=== PATIENT | male | born 1990 | race Caucasian/White ===

== ENCOUNTER 2021-06-02 23:32 | Emergency (ER) | payer OTHER ==
[~2021-06-02] VITALS: Ht 175.3 cm; Wt 72.6 kg
--- NOTE | ~2021-06-02 | EMS ---
[facility] [address] [place] [address] EMS Patient Care Report Name: ADDIS AVITIA Room #: REG LEONARDO Llanes#: [id number] Admission: 06/02/21 Attend Phys: Discharge: Date of : [birth year] Report #: [id number] THIS REPORT FOR: //name// Report Transmitted: 06/03/2021 00:43 EMS Care Summary [facility] MED-ACT Incident [id number] @ 06/02/2021 23:02 Incident Location [facility] [place] [address] Patient ADDIS AVITIA Male, 30 Years 1990 [place] [address] Patient History Cardiac Condition - Other, Patient Allergies No known allergies, Patient Medications None Reported, Chief Complaint Tachycardia Disposition Transported No Lights/[place] Dis[place] Reason Breathing Problem Transported To [facility] Narrative At 23:02, [id number] was dispatched by 911 to the [facility] at [address] for a C1 difficulty breathing. E-23 was also dispatched. PT was a 30 yr old male who reported taking a CBD gummy earlier tonight. He stated that shortly after ingesting it, he began twitching uncontrollably. He [facility] [address] [place] [address] EMS Patient Care Report Name: ADDIS AVITIA Room #: REG Mario Alberto#: [id number] Admission: 06/02/21 Attend Phys: Discharge: Date of : [birth year] Report #: [id number] said that it felt like his throat was getting tighter and his heart was pounding. PT was jumping around and continuously moving, and was unable to sit still. PT would calm himself for a short period, then get himself worked up again and start screaming. In one instance he screamed to the point of making himself vomit. Sinus tach was noticed on the monitor, with no ectopy noted on the 12-lead. VS, ECG, and 12-lead as listed. Radio report to [place]. Transfer of care to Ed room 4. Initial Vitals @23:18P: 146,SpO2: 96,MD Suspected: false @23:13P: 155,SpO2: 96,MD Suspected: false @23:26P: 166,SpO2: 97,MD Suspected: false @23:25P: 152,R: 30,BP: 146/88,Pain: 0/10,GCS: 15,SpO2: 98,Revised Trauma: 11, @23:14P: 152,R: 30,BP: 155/96,GCS: 15,Temp: 98.2F,Glucose: 144,SpO2: 95,Revised Trauma: 11, Impression Anxiety reaction/Emotional upset Procedures @23:26Saline Lock 10cc (20 ga) Site: Antecubital-LeftResponse: UnchangedSucceeded@23:1812-Lead ECG Timeline 23:01,Call Received 23:01,Psap Call 23:02,Dispatched 23:04,En Route 23:09,On Scene 23:10,At Patient 23:13,BP: / M,PULSE: 155,RR: R,SPO2: 96 Ox,ETCO2: ,BG: ,PAIN: ,GCS: , 23:14,BP: 155/96 M,PULSE: 152,RR: 30 R,SPO2: 95 Ox,ETCO2: ,B,PAIN: ,GCS: 15, 23:18,12-Lead ECG, 23:18,BP: / M,PULSE: 146,RR: R,SPO2: 96 Ox,ETCO2: ,BG: ,PAIN: ,GCS: , 23:21,Depart Scene 23:25,BP: 146/88 M,PULSE: 152,RR: 30 R,SPO2: 98 Ox,ETCO2: ,BG: ,PAIN: 0,GCS: 15, 23:26,Saline Lock 10cc 20 ga Site: Antecubital-Left,Response: UnchangedSucceeded, 23:26,BP: / M,PULSE: 166,RR: R,SPO2: 97 Ox,ETCO2: ,BG: ,PAIN: ,GCS: , 23:29,At Destination 23:47,Call Closed [facility] [address] [place] [address] EMS Patient Care Report Name: ADDIS AVITIA Room #: REG Mario Alberto#: [id number] Admission: 06/02/21 Attend Phys: Discharge: Date of : [birth year] Report #: [id number] Disclaimer [email or web address] Copyright 2020 [employer] This EMS Care Summary contains data elements from the applicable legal record (which may be displayed differently). It is designed to provide pertinent information for the following purposes: continuity of care, clinical quality, and state data reporting. The complete legal record is available to ED staff and administrators of the receiving hospital in [email or web address] Patient Tracker. All data is provided "as is."
[2021-06-02 23:57] LABS: ABSOLUTE NEUTROPHILS 3.5 thou/uL (1.4-8.2); EOSINOPHILS 3.9 % (0.0-3.0); HEMATOCRIT 44.1 % (42.0-52.0); HEMOGLOBIN 14.7 gm/dL (14.0-18.0); LYMPHOCYTES 37.7 % (24.0-44.0); MCH 29.9 pg (26.0-34.0); MCHC 33.4 g/dL (28.0-37.0); MCV 89.7 fL (80.0-100.0); PLATELET COUNT 144 thou/uL (150-400); POLYS 49.4 % (36.0-66.0); RBC 4.92 mil/uL (4.50-6.00); RDW 13.8 % (10.5-14.5); WBC 7.1 thou/uL (4.0-11.0)
[2021-06-03 00:03] LABS: ANION GAP 14 mmol/L (7-16); BUN 9 mg/dL (7-18); CALCIUM 8.5 mg/dL (8.5-10.1); CHLORIDE 104 mmol/L (98-107); CO2 22 mmol/L (21-32); CREATININE 1.1 mg/dL (0.7-1.3); GLUCOSE 102 mg/dL (74-106); POTASSIUM 3.8 mmol/L (3.5-5.1); SODIUM 140 mmol/L (136-145)
[2021-06-03 00:16] LABS: ALBUMIN 4.1 g/dL (3.4-5.0); DIRECT BILIRUBIN < 0.1 mg/dL (<0.1-0.2); LIPASE 104 U/L (73-393); SALICYLATE < 2.8 mg/dL (2.8-20.0); SGOT 20 U/L (15-37); SGPT 32 U/L (16-63); TOTAL BILIRUBIN 0.2 mg/dL (0.2-1.0); TOTAL PROTEIN 7.2 g/dL (6.4-8.2)
[2021-06-03 03:45] VITALS: BP 109/70
[2021-06-03 04:00] LABS: AMP/METHAMP Negative (Negative); BARBITURATES Negative (Negative); BENZODIAZEPINES Negative (Negative); COCAINE Negative (Negative); METHADONE Negative (Negative); OPIATES Negative (Negative); PCP Negative (Negative)
== END 2021-06-03 03:45 | disposition home or self-care (01) ==
LOC: ER 23:32
PROVIDERS: Student in an Organized Health Care Education/Training Program
DX: F41.9 Anxiety disorder, unspecified (principal); T40.7X5A Adverse effect of cannabis (derivatives), initial encounter; Y92.89 Other specified places as the place of occurrence of the external cause

== ENCOUNTER 2021-06-06 02:48 | Emergency (ER) | payer OTHER ==
[~2021-06-06] VITALS: Ht 175.3 cm; Wt 72.6 kg
[2021-06-06 04:01] LABS: CALCIUM 8.4 mg/dL (8.5-10.1); POTASSIUM 3.5 mmol/L (3.5-5.1)
[2021-06-06] MEDS ORDERED: XANAX 1 MG TABLE1 MG PO (04:49)
[2021-06-06 07:17] VITALS: BP 102/67
--- NOTE | 2021-06-07 12:26 | EKG ---
[facility] [place] [address] ELECTROCARDIOGRAM REPORT Name: ADDIS AVITIA Room #: [facility]#: [id number] Admission: 06/06/21 Attend Phys: Discharge: 06/06/21 Date of : [birth year] Report #: [id number] [facility] ED Test Date: 2021-06-06 Test Time: 02:52:31 Pat Name: ADDIS AVITIA Department: Room: Gender: [employer] Consultant: PRINCE : 1990 Requested By: Brendan Dominguez Order Number: [id number] MD: Durga Rodríguez Measurements Intervals [place] Rate: 96 P: 74 CA: 141 QRS: 98 QRSD: 102 T: 30 QT: 344 QTc: 435 Interpretive Statements Sinus rhythm Left posterior fascicular block Poor R wave progression Artifact in lead(s) I,III,aVR,aVL,aVF No previous ECG available for comparison Electronically Signed On 06-07-2021 12:26:06 CDT by Durga Rodríguez [email or web address] <ELECTRONICALLY SIGNED> By: Durga Rodríguez MD, [facility] 06/07/21 1226 1 1 Durga Rodríguez MD, [facility] /EPI
== END 2021-06-06 07:15 | disposition home or self-care (01) ==
LOC: ER 02:48
PROVIDERS: Emergency Medicine
DX: F41.0 Panic disorder [episodic paroxysmal anxiety] (principal)